=== PATIENT | female | born 1995 | race Caucasian/White ===

== ENCOUNTER 2020-04-08 14:59 | Emergency (ER) | payer BC, OTHER ==
--- NOTE | 2020-04-08 15:40 | RAD REPORT ---
EXAM DESCRIPTION: RAD - Ankle Left 3 View - 04/08/2020 3:30 pm CLINICAL HISTORY: PAIN COMPARISON: No comparisons FINDINGS: Oblique fracture of the distal fibula is seen with mild displacement. Small posterior mall eolar fracture also present. Significant widening of the medial clear space is indicating syndesmotic disruption. Tibiotalar subluxation is present moderately severe.
[2020-04-08] MEDS ORDERED: MORPHINE 4 MG/ML SYR ONE (15:41)
[2020-04-08] MEDS ORDERED: DIAZEPAM 10 MG/2 ML INJ SYRINGE ONE (15:42)
--- NOTE | 2020-04-08 16:15 | ER ---
Nurse's Notes [facility] Name: Quan Martinez Age: 25 yrs Sex: Female : 1995 Arrival Date: 04/08/2020 Time: 15:04 Bed 18 Private MD: Diagnosis: Displaced bimalleolar fracture of left lower leg;Fall from skateboard Presentation: 04/08 15:07 Chief complaint: Patient states: L ankle pain/swelling, fall from skateboard. Fentanyl ll1 75 mcg and zofran 4mg IV given en route. 18 G AC. Coronavirus screen: Client denies travel out of the [place] in the last 14 days. At this time, the client does not indicate any symptoms associated with coronavirus-19. Ebola Screen: Patient denies travel to an Ebola-affected area in the 21 days before illness onset. Initial Sepsis Screen: Does the patient meet any 2 criteria? HR > 90 bpm. No. Patient's initial sepsis screen is negative. Does the patient have a suspected source of infection? Yes: Bone or joint infection. Risk Assessment: Do you want to hurt yourself or someone else? Patient reports no desire to harm self or others. Onset of symptoms was April 08, 2020. 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 - Social history:: Smoking status: Patient denies any tobacco usage or history of. Screenin:37 Abuse screen: Denies threats or abuse. Nutritional screening: No deficits noted. ll1 Tuberculosis screening: No symptoms or risk factors identified. Fall Risk Fall in past 12 months (25 points). IV access (20 points). Ambulatory Aid- Crutches/Cane/Walker (15 pts). Gait- Impaired (20 pts.). Total Wang Fall Scale indicates High Risk Score (45 or more points). Fall prevention measures have been instituted. Side Rails Up X 2 Frequent Obs/Assessments Occuring As available patient and family educated on Fall Prevention Program and Strategies. Assessment: 15:35 General: Appears uncomfortable, Behavior is anxious, restless. Pain: Complains of pain ll1 in L ankle Quality of pain is described as aching, Aggravated by increased activity. Derm: Wound noted L ankle Wound is abrasion inner L ankle. Musculoskeletal: Circulation, motion, and sensation intact. Capillary refill < 3 seconds, Range of motion: limited in left ankle Tenderness present in L ankle Reports pain in L ankle. Injury Description: fall from skateboard. 16:30 Reassessment: No changes from previously documented assessment. Patient and/or family ll1 updated on plan of care and expected duration. Pain level reassessed. Patient is alert, oriented x 3, equal unlabored respirations, skin warm/dry/pink. 17:00 Musculoskeletal: Circulation, motion, and sensation intact. Capillary refill < 3 ll1 seconds. 17:15 Reassessment: No changes from previously documented assessment. Patient and/or family ll1 updated on plan of care and expected duration. Pain level reassessed. Patient is alert, oriented x 3, equal unlabored respirations, skin warm/dry/pink. Patient states feeling better. Vital Signs: 15:07 BP 132 / 88; Pulse 108; Resp 17; Temp 98.5; Pulse Ox 99% ; Weight 68.04 kg; Height 5 ll1 ft. 6 in. (167.64 cm); Pain 9/10; 17:05 BP 117 / 79; Pulse 67; Resp 16; Pulse Ox 100% ; ll1 15:07 Body Mass Index 24.21 (68.04 kg, 167.64 cm) ll1 ED Course: 15:04 Patient arrived in ED. ll1 15:05 Arm band placed on Patient placed in an exam room, on a stretcher. ll1 15:06 Noa Myers FNP-C is PHCP. snw 15:06 Sohan Perez MD is Attending Physician. snw 15:08 Triage completed. ll1 15:12 Laurie Nicole RN is Primary Nurse. ll1 15:30 Ankle Left 3 View XRAY In Process Unspecified. EDMS 15:38 Patient has correct armband on for positive identification. Bed in low position. Call ll1 light in reach. Side rails up X 1. Pulse ox on. NIBP on. 16:52 Crutch training done. Orthoglass splint: Posterior short lleg splint applied on left em1 leg. stirrup splint applied on left leg. 17:05 IV discontinued, intact, bleeding controlled, No redness/swelling at site. Pressure ll1 dressing applied. 17:06 No provider procedures requiring assistance completed. ll1 Administered Medications: 15:33 Drug: Valium 2 mg Route: IVP; Site: right antecubital; ll1 16:20 Follow up: Response: No adverse reaction; Pain is decreased; RASS: Alert and Calm (0) ll1 15:34 Drug: morphine 4 mg {Note: rass 0.} Route: IVP; Site: right antecubital; ll1 16:20 Follow up: Response: No adverse reaction; Pain is decreased; RASS: Alert and Calm (0) ll1 16:24 Drug: morphine 2 mg Route: IVP; Site: right antecubital; ll1 17:05 Follow up: Response: No adverse reaction; Pain is decreased; RASS: Alert and Calm (0) 1 Outcome: 16:13 Discharge ordered by MD. verde 17:06 Discharged to home ambulatory. ll1 17:06 Condition: stable 17:06 Discharge instructions given to patient, family, Instructed on discharge instructions, follow up and referral plans. medication usage, crutch walking, Demonstrated understanding of instructions, follow-up care, medications, crutch walking, splint care, Prescriptions given X 2. 17:31 Patient left the ED. ll1 Signatures: Dispatcher [employer] EDMS Noa Myers FNP-C FNP-Vic Arredondo em1 Laurie Nicole RN RN ll1 Corrections: (The following items were deleted from the chart) 15:14 15:07 Chief complaint: Patient states: L ankle deformity, fall from skateboard ll1 ll1 16:19 15:34 morphine 5 mg IVP in right antecubital ll1 ll1
--- NOTE | 2020-04-08 16:15 | EDPHYS ---
Physician Documentation [facility] Name: Quan Martinez Age: 25 yrs Sex: Female : 1995 Arrival Date: 04/08/2020 Time: 15:04 Bed 18 Private MD: ED Physician Sohan Perez HPI: 04/08 16:10 This 25 yrs old Female presents to ER via EMS with complaints of Ankle Injury.snw 16:10 The patient presents with a contusion, decreased range of motion, an injury, pain, that snw is acute, swelling, tenderness. The complaints affect the left ankle. Onset: The symptoms/episode began/occurred suddenly, just prior to arrival. Context: The problem was sustained [place] a park, resulted from the patient falling, from skateboard, The mechanism of injury involved inversion of the affected ankle. The patient is unable to bear weight. Associated signs and symptoms: Pertinent positives: swelling, of the left ankle, pain. Severity of symptoms: At their worst the symptoms were incapacitating, in the emergency department the symptoms are unchanged. The patient has not experienced similar symptoms in the past. It is unknown whether or not the patient has recently seen a physician. visiting Parents from [place]. 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 - Social history:: Smoking status: Patient denies any tobacco usage or history of. ROS: 16:10 Constitutional: Negative for fever, chills, and weight loss, Eyes: Negative for injury, snw pain, redness, and discharge, ENT: Negative for injury, pain, and discharge, Neck: Negative for injury, pain, and swelling, Cardiovascular: Negative for chest pain, palpitations, and edema, Respiratory: Negative for shortness of breath, cough, wheezing, and pleuritic chest pain, Abdomen/GI: Negative for abdominal pain, nausea, vomiting, diarrhea, and constipation, Back: Negative for injury and pain, : Negative for injury, bleeding, discharge, and swelling, Skin: Negative for injury, rash, and discoloration, Neuro: Negative for headache, weakness, numbness, tingling, and seizure, Psych: Negative for depression, anxiety, suicide ideation, homicidal ideation, and hallucinations. 16:10 MS/extremity: Positive for injury or acute deformity, decreased range of motion, pain, swelling, tenderness, of the left ankle. Exam: 16:08 Constitutional: This is a well developed, well nourished patient who is awake, alert, snw and in no acute distress. Head/Face: Normocephalic, atraumatic. Eyes: Pupils equal round and reactive to light, extra-ocular motions intact. Lids and lashes normal. Conjunctiva and sclera are non-icteric and not injected. Cornea within normal limits. Periorbital areas with no swelling, redness, or edema. ENT: Nares patent. No nasal discharge, no septal abnormalities noted. Tympanic membranes are normal and external auditory canals are clear. Oropharynx with no redness, swelling, or masses, exudates, or evidence of obstruction, uvula midline. Mucous membranes moist. Neck: Trachea midline, no thyromegaly or masses palpated, and no cervical lymphadenopathy. Supple, full range of motion without nuchal rigidity, or vertebral point tenderness. No Meningismus. Chest/axilla: Normal chest wall appearance and motion. Nontender with no deformity. No lesions are appreciated. Cardiovascular: Regular rate and rhythm with a normal S1 and S2. No gallops, murmurs, or rubs. Normal PMI, no JVD. No pulse deficits. Respiratory: Lungs have equal breath sounds bilaterally, clear to auscultation and percussion. No rales, rhonchi or wheezes noted. No increased work of breathing, no retractions or nasal flaring. Abdomen/GI: Soft, non-tender, with normal bowel sounds. No distension or tympany. No guarding or rebound. No evidence of tenderness throughout. Back: No spinal tenderness. No costovertebral tenderness. Full range of motion. Skin: Warm, dry with normal turgor. Normal color with no rashes, no lesions, and no evidence of cellulitis. Neuro: Awake and alert, GCS 15, oriented to person, place, time, and situation. Cranial nerves II-XII grossly intact. Motor strength 5/5 in all extremities. Sensory grossly intact. Cerebellar exam normal. Normal gait. Psych: Awake, alert, with orientation to person, place and time. Behavior, mood, and affect are within normal limits. 16:08 Musculoskeletal/extremity: Extremities: grossly normal except: noted in the left ankle: decreased ROM, swelling, tenderness, Circulation is intact in all extremities. the left ankle Joints: All joints are normal except the left ankle displays ligament laxity, pain at rest, painful range of motion, swelling, tenderness, Weight bearing: is unable to bear weight. Vital Signs: 15:07 BP 132 / 88; Pulse 108; Resp 17; Temp 98.5; Pulse Ox 99% ; Weight 68.04 kg; Height 5 ll1 ft. 6 in. (167.64 cm); Pain 9/10; 17:05 BP 117 / 79; Pulse 67; Resp 16; Pulse Ox 100% ; ll1 15:07 Body Mass Index 24.21 (68.04 kg, 167.64 cm) ll1 MDM: 15:06 Patient medically screened. snw 16:18 Data reviewed: vital signs, nurses notes. Data interpreted: Pulse oximetry: on room air snw is 99 %. Interpretation: normal. Counseling: I had a detailed discussion with the patient and/or guardian regarding: the historical points, exam findings, and any diagnostic results supporting the discharge/admit diagnosis, the presence of at least one elevated blood pressure reading (>120/80) during this emergency department visit, radiology results, the need for outpatient follow up, to return to the emergency department if symptoms worsen or persist or if there are any questions or concerns that arise at home. Response to treatment: the patient's symptoms have mildly improved after treatment. Special discussion: Based on the patient's history, exam and DX evaluation, there is no indication for emergent intervention or inpatient TX. It is understood by the patient/guardian that if the SXs persist or worsen they need to return immediately for re-evaluation. Based on the history and exam findings, there is no indication for further emergent testing or inpatient evaluation. I discussed with the patient/guardian the need to see the orthopedic surgeon for further evaluation of the symptoms. 04/08 15:11 Order name: Ankle Left 3 View XRAY; Complete Time: 15:42 snw 04/08 15:21 Order name: Splint - Ankle: Orthoglass: Stirrup; Complete Time: 16:52 snw 04/08 15:21 Order name: Splint - Ankle: Posterior; Complete Time: 16:52 snw 04/08 15:45 Order name: Crutches; Complete Time: 16:52 snw 04/08 15:45 Order name: Crutch Training; Complete Time: 16:52 snw 04/08 15:45 Order name: Ice pack; Complete Time: 16:20 snw Administered Medications: 15:33 Drug: Valium 2 mg Route: IVP; Site: right antecubital; ll1 16:20 Follow up: Response: No adverse reaction; Pain is decreased; RASS: Alert and Calm (0) ll1 15:34 Drug: morphine 4 mg {Note: rass 0.} Route: IVP; Site: right antecubital; ll1 16:20 Follow up: Response: No adverse reaction; Pain is decreased; RASS: Alert and Calm (0) 1 16:24 Drug: morphine 2 mg Route: IVP; Site: right antecubital; ll1 17:05 Follow up: Response: No adverse reaction; Pain is decreased; RASS: Alert and Calm (0) 1 Disposition: 18:02 Co-signature as Attending Physician, Sohan Perez MD I agree with the assessment and kdr plan of care. Disposition: 04/08/20 16:13 Discharged to Home. Impression: Displaced bimalleolar fracture of left lower leg, Fall from skateboard. - Condition is Stable. - Discharge Instructions: Ankle Fracture, Displaced Bimalleolar Ankle Fracture Treated With ORIF, Crutch Use, RICE for Routine Care of Injuries. - Prescriptions for Tylenol- Codeine #3 300-30 mg Oral Tablet - take 2 tablets by ORAL route every 6 hours As needed; 16 tablet. orphenadrine citrate 100 mg Oral Tablet Sustained Release - take 1 tablet by ORAL route 2 times per day As needed; 20 tablet. - Work release form, Medication Reconciliation Form, Thank You Letter, Antibiotic Education, Prescription Opioid Use form. - Follow up: Emergency Department; When: As needed; Reason: Worsening of condition. Follow up: Private Physician; When: 2 - 3 days; Reason: Recheck today's complaints, Continuance of care, Re-evaluation by your physician. Signatures: Dispatcher [employer] EDNM Sohan Perez MD MD kdr Waters, Shelly, FNP-Ana IAKEN-Csnw Corey, Lynsay, RN RN ll1 Corrections: (The following items were deleted from the chart) 16:14 16:13 04/08/2020 16:13 Discharged to Home. Impression: Displaced bimalleolar fracture snw of left lower leg. Condition is Stable. Forms are Medication Reconciliation Form, Thank You Letter, Antibiotic Education, Prescription Opioid Use. Follow up: Emergency Department; When: As needed; Reason: Worsening of condition. Follow up: Private Physician; When: 2 - 3 days; Reason: Recheck today's complaints, Continuance of care, Re-evaluation by your physician. snw 17:31 16:14 04/08/2020 16:13 Discharged to Home. Impression: Displaced bimalleolar fracture ll1 of left lower leg; Fall from skateboard. Condition is Stable. Forms are Medication Reconciliation Form, Thank You Letter, Antibiotic Education, Prescription Opioid Use. Follow up: Emergency Department; When: As needed; Reason: Worsening of condition. Follow up: Private Physician; When: 2 - 3 days; Reason: Recheck today's complaints, Continuance of care, Re-evaluation by your physician. snw
[2020-04-08] MEDS ORDERED: MORPHINE 2 MG/ML SYR ONE (16:33)
[2020-04-08 17:36] VITALS: TEMP 98.5
[2020-04-08 17:37] VITALS: BP 117/79; O2SAT 100
== END 2020-04-08 17:31 | disposition home or self-care (01) ==
LOC: ER 14:59
PROC: 2W3RX1Z Immobilization of Left Lower Leg using Splint (ICD-10-PCS; principal; 2020-04-08)
DX: S82.842A Displaced bimalleolar fracture of left lower leg, initial encounter for closed fracture (principal); V00.131A Fall from skateboard, initial encounter; Y93.9 Activity, unspecified; Y92.830 Public park as the place of occurrence of the external cause; Z88.1 Allergy status to other antibiotic agents
CPT/HCPCS: 73610; 96375; 96374; 99284; 29515; J3360; J2270